=== PATIENT | male | born 1975 ===

== ENCOUNTER 2018-03-05 20:04 | Emergency (ER) | payer OTHER ==
[2018-03-05 20:12] VITALS: RESP 18; O2SAT 99
[2018-03-05 21:08] LABS: BASO % 0.6 % (0.0-2.0); EOS # 0.4 K/uL (0.0-0.7); EOS % 5.5 % (0.0-4.0); HEMOGLOBIN 15.8 g/dL (12.0-18.0); LYMPH # 2.4 K/uL (1.0-4.3); LYMPH % 33.1 % (20.0-40.0); MEAN CORPUSCULAR HEMOGLOBIN 28.7 pg (27.0-31.0); MEAN CORPUSCULAR HGB CONC 33.8 g/dL (33.0-37.0); MONO # 0.5 K/uL (0.0-0.8); NEUT # 3.9 K/uL (1.8-7.0); NEUT % 53.8 % (50.0-75.0); RBC 5.51 Mil/uL (4.40-5.90); RED CELL DISTRIBUTION WIDTH 12.9 % (11.5-14.5); WHITE BLOOD COUNT 7.3 K/uL (4.8-10.8)
[2018-03-05 21:25] LABS: VENOUS BLOOD GAS BASE EXCESS -1.4 mmol/L (0.0-2.0); VENOUS BLOOD GAS PCO2 49 mmHg (40-60); VENOUS BLOOD GAS PO2 26 mm/Hg (30-55); VENOUS BLOOD PH 7.32 (7.32-7.43)
--- NOTE | 2018-03-05 21:25 | ED PDOC ---
Hyperglycemia/Hypoglycemia Time Seen by Provider: 03/05/18 20:18 Chief Complaint (Nursing): Abnormal Labs Chief Complaint (Provider): Hyperglycemia History Per: Patient History/Exam Limitations: no limitations Onset/Duration Of Symptoms: Other (Month and a half) Current Symptoms Are (Timing): Still Present : The patient does not have any of the infectious symptoms listed except for those marked. Additional Complaint(s): 42 year old male presents to the ED complaining of hyperglycemia for about a month and a half. Patient has been having excessive thirst, increased urine output, generalized weakness, and unintentional weakness. Saw Dr Brooke Coker who stated patient had an accucheck of 400 in the office and was sent to the ED for further evaluation. Patient has no history of diabetes. PMD: None, visited Dr Jethro Coker, but not established pt Past Medical History Reviewed: Historical Data, Nursing Documentation, Vital Signs Vital Signs: Last Vital Signs Temp 98.3 F 03/05/18 20:09 Pulse 85 03/05/18 20:09 Resp 18 03/05/18 20:09 BP 137/76 03/05/18 20:09 Pulse Ox 99 03/05/18 20:09 - Medical History PMH: No Chronic Diseases - Surgical History Surgical History: No Surg Hx - Family History Family History: States: CAD - Social History Current smoker - smoking cessation education provided: No Alcohol: Social Drugs: Denies - Home Medications Home Medications: Ambulatory Orders Medication Instructions Recorded metFORMIN [glucOPHAGE] 500 mg PO BRK #30 tab 03/05/18 - Allergies Allergies/Adverse Reactions: Allergies Allergy/AdvReac Type Severity Reaction Status Date / Time No Known Allergies Allergy Verified 03/05/18 20:09 Review of Systems ROS Statement: Except As Marked, All Systems Reviewed And Found Negative Constitutional: Positive for: Weakness, Malaise, Other (Fatigue) Physical Exam - Reviewed Nursing Documentation Reviewed: Yes Vital Signs Reviewed: Yes - Physical Exam Appears: Positive for: No Acute Distress (tired appearing) Head Exam: Positive for: ATRAUMATIC, NORMOCEPHALIC Skin: Positive for: Warm, Dry Eye Exam: Positive for: EOMI, PERRL ENT: Positive for: Other (dry mucus membranes). Negative for: Pharyngeal Erythema, Tonsillar Exudate Neck: Positive for: Painless ROM, Supple Cardiovascular/Chest: Positive for: Regular Rate, Rhythm, Chest Non Tender. Negative for: Murmur Respiratory: Positive for: Normal Breath Sounds. Negative for: Respiratory Distress Gastrointestinal/Abdominal: Positive for: Soft. Negative for: Tenderness Back: Positive for: Normal Inspection. Negative for: Decreased ROM Extremity: Positive for: Normal ROM. Negative for: Deformity Lymphatic: Negative for: Adenopathy Neurologic/Psych: Positive for: Alert. Negative for: Motor/Sensory Deficits - Laboratory Results Result Diagrams: 03/05/18 21:02 03/05/18 21:02 - ECG O2 Sat by Pulse Oximetry: 99 (RA) Pulse Ox Interpretation: Normal Medical Decision Making Medical Decision Making: Initial Impression: Hyperglycemia. Differentials include but not limited to new onset diabetes, pancreatitis, dehydration, DKA, electrolyte abnormality Initial Plan: Venous blood gas CMP Lipase Magnesium Phosphorous Troponin ED urine dipstick CBC Glucose Labs demonstrate elevated glucose, normal anion gap, normal pH. Ketones in udip. 11p Glucose trending down s/p IVF. Scribe Attestation: Documented by Jose Harden acting as a scribe for Brenda Anna MD. Provider Scribe Attestation: All medical record entries made by the Scribe were at my direction and personally dictated by me. I have reviewed the chart and agree that the record accurately reflects my personal performance of the history, physical exam, medical decision making, and the department course for this patient. I have also personally directed, reviewed, and agree with the discharge instructions and disposition. Disposition - Clinical Impression Clinical Impression: Hyperglycemia Counseled Patient/Family Regarding: Studies Performed, Diagnosis, Need For Followup, Rx Given - Disposition Referrals: [facility] [Outside] Disposition: Routine/Home Disposition Time: 23:00 Condition: IMPROVED Additional Instructions: EMANUEL HERBERT GALLAGHER A [facility] POR LA MANANA A HACER DORA NATE EN 1-2 REGALADO POR MAS TRATIMIENTE Prescriptions: metFORMIN [glucOPHAGE] 500 mg PO BRK #30 tab Instructions: Hyperglycemia, Adult (DC), The ABCs of Diabetes, Diabetes and Diet Print Language: UKRAINIAN
[2018-03-05 21:26] LABS: ALB/GLOB RATIO 1.3 (1.0-2.1); ALBUMIN 4.2 g/dL (3.5-5.0); ALT/SGPT 39 U/L (21-72); AST/SGOT 27 U/L (17-59); BLOOD UREA NITROGEN 19 mg/dl (9-20); CALCIUM 9.4 mg/dL (8.4-10.2); GFR AFRICAN-AMERICAN > 60; GFR NON-AFRICAN AMERICAN > 60; LIPASE 143 U/L (23-300)
[2018-03-05] MEDS ORDERED: Sodium Chloride 0.9% 1,000 ML IV STA (21:31)
[2018-03-05] MEDS ORDERED: Insulin Regular 100 units/ml IVP STA (23:01)
[2018-03-06 00:08] VITALS: BP 133/72; PULSE 84; TEMP 98.2
== END 2018-03-05 23:39 | disposition home or self-care (01) ==
LOC: H.ER 20:04
DX: E11.65 Type 2 diabetes mellitus with hyperglycemia (principal); Z79.84 Long term (current) use of oral hypoglycemic drugs
CPT/HCPCS: 80053; 82803; 82948; 83690; 83735; 84100; 84484; 85025; 96361; 96374; 99283; J7030